=== PATIENT | male | born 1970 | race Caucasian/White ===

== ENCOUNTER 2017-06-15 16:05 | Emergency (ER) | payer OTHER ==
[~2017-06-15] VITALS: Wt 105.4 kg
[2017-06-15] MEDS ORDERED: ADVIL 200MG TA200 MG PO (16:14)
[2017-06-15] MEDS ORDERED: FEXOFENADINE H180 M1 PO (16:15)
[2017-06-15 17:45] VITALS: BP 153/104
== END 2017-06-15 17:55 | disposition short-term general hospital (02) ==
LOC: ED 16:05
DX: K40.90 Unilateral inguinal hernia, without obstruction or gangrene, not specified as recurrent (principal)

== ENCOUNTER → 2020-03-17 | Outpatient (CLI) | payer OTHER ==
[~2020-03-17] MED LIST: ADVIL 200MG TA200 MG PO; FEXOFENADINE H180 M1 PO
== END ==
LOC: RAD 12:33
DX: K40.90 Unilateral inguinal hernia, without obstruction or gangrene, not specified as recurrent (principal)